=== PATIENT | male | born 1990 | race African-American/Black ===

== ENCOUNTER 2017-04-11 17:07 | Emergency (ER) | payer SELFPAY ==
--- NOTE | 2017-04-11 17:36 | EDM.PDOC ---
ED HPI GENERAL MEDICAL PROBLEM - General Stated Complaint: PT HAS QTIP IN LT EAR Time Seen by Provider: 04/11/17 17:32 Source of Information: Reports: Patient History Limitations: Reports: No Limitations - History of Present Illness INITIAL COMMENTS - FREE TEXT/NARRATIVE: HISTORY AND PHYSICAL: []26-year-old male presenting with Q-tip cotton in his left ear History of Present Illness: []Last night the cotton came off of the Q-tip his history and a clean his ear and he has been unable to get this out denies any other difficulties No cough cold fever or sore throat denies any gastrointestinal anteriorly symptoms no chest pain Review of Systems: As per history of present illness and below otherwise all systems reviewed and negative. Past medical history: As per history of present illness and as reviewed below otherwise noncontributory. Surgical history: As per history of present illness and as reviewed below otherwise noncontributory. Social history: No reported history of drug or alcohol abuse. Family history: As per history of present illness and as reviewed below otherwise noncontributory. Physical exam: Alert and oriented gentleman answering questions appropriately speaks in full sentences without any shortness of breath HEENT: Atraumatic, normocehpalic, pupils reactive, negative for conjunctival pallor or scleral icterus, mucous membranes moist, throat clear, neck supple, nontender, trachea midline. Cotton is noted to the posterior left ear canal Lungs: Clear to auscultation, breath sounds equal bilaterally, chest non tender. Heart: S1S2, regular, negative for clicks, rubs, or JVD. Abdomen: Soft, nondistended, nontender. Negative for masses or hepatossplenmegaly. Negative for costovertebral tenderness. Pelvis: Stable nontender. Genitourinary: Deferred. Rectal: Deferred Extremities: Atraumatic, negative for cords or calf pain. Neurovascular unremarkable. Neuro: Awake, alert, oriented. Cranial nerves II through XII unremarkable. Cerebellum unremarkable. Motor and sensory unremarkable throughout. Exam nonfocal. After examination and alligator clamp was utilized and cotton was removed from ear canal without any difficulty canal is non-erythematous hearing was intact. Diagnostics: [] Therapeutics: [ Impression: [Foreign body in left ear canal removed] Plan: []Discharged to home Return as needed for further concern Definitive disposition and diagnosis as appropriate pending reevaluation and review of above. Onset: Sudden Duration: Day(s): (1) Location: Reports: Head ED ROS GENERAL - Review of Systems Review Of Systems: ROS reveals no pertinent complaints other than HPI. ED EXAM, GENERAL - Physical Exam Exam: See Below (See dictation) Departure - Departure Time of Disposition: 17:35 Disposition: Home, Self-Care 01 Condition: Good Clinical Impression: Foreign body in left ear, initial encounter - Discharge Information Referrals: PCP,None [Primary Care Provider] - Additional Instructions: The following information is given to patients seen in the emergency department who are being discharged to home. This information is to outline your options for follow-up care. We provide all patients seen in our emergency department with a follow-up referral. The need for follow-up, as well as the timing and circumstances, are variable depending upon the specifics of your emergency department visit. If you don't have a primary care physician on staff, we will provide you with a referral. We always advise you to contact your personal physician following an emergency department visit to inform them of the circumstance of the visit and for follow-up with them and/or the need for any referrals to a consulting specialist. The emergency department will also refer you to a specialist when appropriate. This referral assures that you have the opportunity for followup care with a specialist. All of these measure are taken in an effort to provide you with optimal care, which includes your followup. Under all circumstances we always encourage you to contact your private physician who remains a resource for coordinating your care. When calling for followup care, please make the office aware that this follow-up is from your recent emergency room visit. If for any reason you are refused follow-up, please contact the [facility] emergency department at and asked to speak to the emergency department charge nurse. Avoid using Q-tips two-year
== END 2017-04-11 17:50 | disposition home or self-care (01) ==
LOC: MW.ED 17:07
DX: T16.2XXA Foreign body in left ear, initial encounter (principal); X58.XXXA Exposure to other specified factors, initial encounter
CPT/HCPCS: 69200; 99282

== ENCOUNTER 2020-12-19 20:18 | Emergency (ER) | payer SELFPAY ==
--- NOTE | 2020-12-19 20:50 | EDM.PDOC ---
ED HPI GENERAL MEDICAL PROBLEM - General Chief Complaint: General Stated Complaint: FALL Time Seen by Provider: 12/19/20 20:21 Source of Information: Reports: Patient History Limitations: Reports: No Limitations - History of Present Illness INITIAL COMMENTS - FREE TEXT/NARRATIVE: Patient is a 30-year-old male no past medical history presents today for right shoulder pain. Patient states that he was getting chased by a dog when he hopped a fence he flipped over landing onto his face and right shoulder. He has abrasion to the right side of his face under his eye. Patient also has pain to the right shoulder and has difficulty moving or ranging the shoulder. Pain does not radiate and is made worse with any type of movement or palpation. He denies any LOC he has no nausea vomiting and has no pain no injuries to any other parts of his body besides his shoulder. right shoulder Pain Score (Numeric/FACES): 8 - Related Data Allergies Allergy/AdvReac Type Severity Reaction Status Date / Time No Known Allergies Allergy Verified 12/19/20 20:20 Home Meds: Home Meds . [No Known Home Meds] 04/11/17 [History] Past Medical History - Past Health History Medical/Surgical History: Denies Medical/Surgical History Social & Family History - Family History Family Medical History: No Pertinent Family History ED ROS GENERAL - Review of Systems Review Of Systems: See Below Constitutional: Reports: No Symptoms HEENT: Reports: No Symptoms Respiratory: Reports: No Symptoms Cardiovascular: Reports: No Symptoms Endocrine: Reports: No Symptoms GI/Abdominal: Reports: No Symptoms : Reports: No Symptoms Musculoskeletal: Reports: Shoulder Pain Skin: Reports: No Symptoms Neurological: Reports: No Symptoms Psychiatric: Reports: No Symptoms Hematologic/Lymphatic: Reports: No Symptoms Immunologic: Reports: No Symptoms ED EXAM, GENERAL - Physical Exam Exam: See Below Exam Limited By: No Limitations General Appearance: Alert, WD/WN, No Apparent Distress Eye Exam: Bilateral Eye: EOMI Ears: Normal External Exam Nose: Normal Inspection Head: Other (Abrasion under left eye) Neck: Normal Inspection Respiratory/Chest: No Respiratory Distress Cardiovascular: Normal Peripheral Pulses Extremities: No: Normal Inspection (Obvious deformity of right shoulder), Normal Range of Motion (Good Range of motion of wrist elbow limited range of motion right shoulder) Neurological: Alert, Oriented, Normal Cognition, Normal Gait ED GENERAL MEDICAL PROCEDURES - Pre-Sedation Evaluation Proposed Procedure: shoulder reduction - Joint Reduction Right Shoulder Sedation: Conscious Sedation Pre-procedure NV status: Normal Post-procedure NV status: Normal Technique: Traction/Counter Traction Number of Attempts: 1 Post-Reduction Imaging: Completely Reduced Joint Reduction Complications: No Course - Vital Signs Last Recorded V/S: Last Vital Signs Temp 97.0 F 12/19/20 20:21 Pulse 86 12/19/20 22:40 Resp 18 12/19/20 22:40 BP 149/81 H 12/19/20 22:40 Pulse Ox 100 12/19/20 22:40 - Orders/Labs/Meds Orders: Active Orders 24 hr Category Date Time Status DME for Discharge [COMM] Stat Oth 12/19/20 22:52 Ordered DME for Discharge [COMM] Stat Oth 12/19/20 23:31 Ordered Meds: Medications Discontinued Medications Generic Name Dose Route Start Last Admin Trade Name Freq PRN Reason Stop Dose Admin Etomidate 10 mg 12/19/20 21:20 12/19/20 22:03 Etomidate 2 Mg/Ml 20 Ml Sdv IVPUSH 12/19/20 21:21 10 mg ONETIME ONE Administration - Re-Assessments/Exams Free Text/Narrative Re-Assessment/Exam: 12/19/20 22:49 Shoulder reduced we did consultation with etomidate patient tolerated procedure well Free Text/Narrative Re-Assessment/Exam: 12/19/20 23:31 What you are ordering Right arm sling Why you are ordering it Immobilization How it will benefit patient immobilization pain control How long is patient to use it 7-10 days Departure - Departure Time of Disposition: 00:08 Disposition: Home, Self-Care 01 Condition: Good Clinical Impression: Shoulder dislocation - Discharge Information *PRESCRIPTION DRUG MONITORING PROGRAM REVIEWED*: Not Applicable *COPY OF PRESCRIPTION DRUG MONITORING REPORT IN PATIENT ELVIS: Not Applicable Instructions: Shoulder Dislocation, [id number] Referrals: PCP,None [Primary Care Provider] - Forms: ED Department Discharge Additional Instructions: The following information is given to patients seen in the emergency department who are being discharged to home. This information is to outline your options for follow-up care. We provide all patients seen in our emergency department with a follow-up referral. The need for follow-up, as well as the timing and circumstances, are variable depending upon the specifics of your emergency department visit. If you don't have a primary care physician on staff, we will provide you with a referral. We always advise you to contact your personal physician following an emergency department visit to inform them of the circumstance of the visit and for follow-up with them and/or the need for any referrals to a consulting specialist. The emergency department will also refer you to a specialist when appropriate. This referral assures that you have the opportunity for follow-up care with a s pecialist. All of these measure are taken in an effort to provide you with optimal care, which includes your follow-up. Under all circumstances we always encourage you to contact your private physici an who remains a resource for coordinating your care. When calling for follow-up care, please make the office aware that this follow-up is from your recent emergency room visit. If for any reason you are refused follow-up, please contact the [facility] Emergency Department at and asked to speak to the emergency department charge nurse. Please follow up with your primary care physician. If you do not have a primary care physician, see below: [facility] - [facility] Professional Building [address] [place] [address], [address] [place] [address] Orthopedic Surgery [place] [phone] [address] [address], [address] You were seen today for shoulder dislocation. We were able to reduce it and put it back in place. We gave you a sling that she should wear for the next 5 to 7 days you can occasionally movement Ibrance arm. Above is the number for our bone doctors that we want you to call and set up an appointment tomorrow to be seen this week. Sepsis Event Note (ED) - Evaluation Sepsis Screening Result: No Definite Risk - Focused Exam Vital Signs: Vital Signs Temp Pulse Resp BP Pulse Ox 12/19/20 22:40 86 18 149/81 H 100 12/19/20 22:20 98 18 160/81 H 97 12/19/20 22:05 114 H 18 136/53 L 98 12/19/20 20:21 97.0 F 73 18 125/45 L 97 - My Orders Last 24 Hours: My Active Orders 12/19/20 22:52 DME for Discharge [COMM] Stat 12/19/20 23:31 DME for Discharge [COMM] Stat - Assessment/Plan Last 24 Hours: My Active Orders 12/19/20 22:52 DME for Discharge [COMM] Stat 12/19/20 23:31 DME for Discharge [COMM] Stat Plan: Patient is a 30-year-old male presents today for right shoulder pain after falling over a fence trying to run away from the dog. He has obvious deformity to the right shoulder unclear if is dislocated will obtain x-ray provide pain control and reassess
--- NOTE | 2020-12-19 21:12 | CR ---
Indication: Fell from [place], extreme pain. Technique: Right shoulder 2 views. Comparison: None. Findings: The humerus is dislocated posteriorly relative to the glenoid. No acute fracture identified. The visualized right lung is clear. Soft tissues are unremarkable. Impression: Posterior shoulder dislocation. Dictated by Desire Courtney MD @ 12/19/2020 9:10:08 PM (Electronically Signed)
[2020-12-19] MEDS ORDERED: Etomidate 2 MG/ML 20 ML SDV IVPUSH ONE (21:20)
--- NOTE | 2020-12-19 23:56 | CR ---
Indication: Postreduction Technique: Three views Comparison: Right shoulder 12/19/2020 Findings: No definite fracture. Interval reduction of the right glenohumeral joint. No evidence of dislocation. Dictated by Tay Hi MD @ 12/19/2020 11:55:26 PM (Electronically Signed)
== END 2020-12-20 00:15 | disposition home or self-care (01) ==
LOC: MW.ED 20:18
DX: S43.004A Unspecified dislocation of right shoulder joint, initial encounter (principal); W17.89XA Other fall from one level to another, initial encounter; Y93.02 Activity, running
CPT/HCPCS: 23650; 73030; 99283; J3490